=== PATIENT | male | born 1955 | race Caucasian/White ===

== ENCOUNTER 2018-09-06 09:56 | Outpatient (CLI) | payer MEDICARE ==
--- NOTE | 2018-09-06 10:33 | ULT ---
EXAM: US Abdominal Aorta PROVIDED CLINICAL HISTORY: Family history of abdominal aortic aneurysm COMPARISON: None FINDINGS: The proximal abdominal aorta measures about 3 cm in greatest transverse dimension. The remainder of t he abdominal aorta appears nonaneurysmal. 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
== END 2018-09-06 09:57 | disposition home or self-care (01) ==
LOC: BICULT 09:56
PROVIDERS: ATTEND Internal Medicine Geriatric Medicine
DX: Z13.6 Encounter for screening for cardiovascular disorders (principal); I71.4 Abdominal aortic aneurysm, without rupture
CPT/HCPCS: 76775